=== PATIENT | female | born 1955 | race Caucasian/White ===

== ENCOUNTER 2016-06-13 21:41 | Emergency (ER) | payer MEDICARE, OTHER ==
[~2016-06-13 21:41] MED LIST: ABILIFY30 MG PO; ADVAIR250 INH; AMB10 PO; ATARAX50B PO; COREG3 PO; DEPAKOT500 PO; DEPAKOTEER PO; DIVALPROEX PO; EFFEXOR XR150 MG PO; HYDROCODONE PO; HYDROXYZINE PO; KLONO1 PO; KLONO2 PO; KLONO5 PO; LIPITOR20 PO; LORTAB10 PO; NAP500 PO; NAPROXEN PO; NORV25 PO; PAX20 PO; SEROQUEL PO; SEROQUEL300 MG PO; SOMATAB PO; SPIRIVA INH; STADOLNS NAS; VIMPAT100 MG PO; VIST50 PO; ZOL100 PO; ZOLOFT PO
[2016-06-14 00:15] LABS: ASCORBIC ACID (UR NOT ORDER) NEG (NEG); BILIRUBIN, URINE NEGATIVE (NEG); ER URINALYSIS TAT 0 Hrs 00 Mins; KETONE, URINE NEGATIVE (NEG); LEUKOCYTE ESTERASE(NOT OR NEG (NEG); NITRITE (URINE) NEG (NEG); WBC (NOT ORDERED) (RFLEX) 1 (0-5)
== END 2016-06-14 01:34 | disposition home or self-care (01) ==
LOC: ER 21:41
PROVIDERS: Emergency Medicine
DX: S30.0XXA Contusion of lower back and pelvis, initial encounter (principal); S20.20XA Contusion of thorax, unspecified, initial encounter; J18.9 Pneumonia, unspecified organism; I10 Essential (primary) hypertension; F31.9 Bipolar disorder, unspecified; Z90.710 Acquired absence of both cervix and uterus; W10.9XXA Fall (on) (from) unspecified stairs and steps, initial encounter
CPT/HCPCS: 71250; 72100; 81001; 99284

== ENCOUNTER 2016-07-10 19:10 | Emergency (ER) | payer MEDICARE, OTHER | END 2016-07-10 23:48 | disposition home or self-care (01) | LOC: ER 19:10 | DX: S60.222A Contusion of left hand, initial encounter (principal); F29 Unspecified psychosis not due to a substance or known physiological condition; I10 Essential (primary) hypertension; F31.9 Bipolar disorder, unspecified; Z88.2 Allergy status to sulfonamides; Z88.5 Allergy status to narcotic agent; Z88.8 Allergy status to other drugs, medicaments and biological substances; Z79.899 Other long term (current) drug therapy; W19.XXXA Unspecified fall, initial encounter | CPT/HCPCS: 70450; 72170; 99284; A9270-GY ==

== ENCOUNTER 2016-12-18 15:17 | Emergency (ER) | payer MEDICARE, OTHER | END 2016-12-18 20:00 | disposition home or self-care (01) | LOC: ER 15:17 | DX: M54.5 Low back pain (principal); F31.9 Bipolar disorder, unspecified; F41.9 Anxiety disorder, unspecified; Z90.710 Acquired absence of both cervix and uterus; Z88.2 Allergy status to sulfonamides; Z88.5 Allergy status to narcotic agent; Z88.6 Allergy status to analgesic agent; Z88.8 Allergy status to other drugs, medicaments and biological substances; Z79.899 Other long term (current) drug therapy | CPT/HCPCS: 72072; 72100; 72192; 99284 ==